=== PATIENT | male | born 1995 | race Caucasian/White ===

== ENCOUNTER 2023-06-13 17:41 | Emergency (ER) | payer SELFPAY ==
[~2023-06-13] VITALS: Ht 172.7 cm; Wt 102.0 kg
[2023-06-13] MEDS ORDERED: LIDOcaine HCl 1% (Local Anesth.) 20 ML VIAL IM STA (17:46)
[2023-06-13] MEDS ORDERED: LIDOcaine HCl 1% (Local Anesth.) 20 ML VIAL STI STA (17:47)
[2023-06-13] MEDS ORDERED: POVIDONE IODINE 0.5 OZ/BTL TOP ONE (17:50)
[2023-06-13] MEDS ORDERED: Diph, Acellular Pertussis, Tet 0.5 ML/VIAL (Tdap) SDV IM ONE (17:50)
[2023-06-13] MEDS ORDERED: cefTRIAXone SODIUM 1 GM/VIAL SDV IM ONE (17:50)
[2023-06-13] MEDS ORDERED: SODIUM CHLORIDE 500 ML BTL IR ONE (17:50)
[2023-06-13] MEDS ORDERED: NAPROXEN 250 MG/TAB PO ONE (17:55)
[2023-06-13 18:18] VITALS: BP 133/80
[2023-06-13 18:31] VITALS: BP 146/93
[2023-06-13] MEDS ORDERED: NAPROXEN500 MG PO (20:09)
[2023-06-13 20:12] VITALS: BP 146/93
== END 2023-06-13 20:15 | disposition home or self-care (01) | DRG 159 ==
LOC: ED 17:41
DX: S01.511A Laceration without foreign body of lip, initial encounter (principal); S00.12XA Contusion of left eyelid and periocular area, initial encounter; Y04.0XXA Assault by unarmed brawl or fight, initial encounter; Y92.89 Other specified places as the place of occurrence of the external cause; Y99.0 Civilian activity done for income or pay